=== PATIENT | male | born 1975 | race Caucasian/White ===

== ENCOUNTER 2017-12-09 23:45 | Emergency (ER) | payer OTHER ==
[~2017-12-09] VITALS: Ht 177.8 cm; Wt 86.2 kg
[~2017-12-09 23:45] MED LIST: AMOCLA875 PO; CYCL10 PO; ERYT.5TO LEFTEYE; IBUP400 PO; Naprosyn500 MG PO; PHENY100ER PO; Veetids 500500 MG PO
[2017-12-10] MEDS ORDERED: LEVE500 PO (02:44)
[2017-12-10] MEDS ORDERED: GABA100 (02:44)
[2017-12-10] MEDS ORDERED: IBUP800 PO (03:52)
[2017-12-10] MEDS ORDERED: MUPI1NAS (03:52)
== END 2017-12-10 04:10 | disposition home or self-care (01) ==
LOC: ER 23:45
DX: M79.675 Pain in left toe(s) (principal); Z23 Encounter for immunization; G40.909 Epilepsy, unspecified, not intractable, without status epilepticus; F17.200 Nicotine dependence, unspecified, uncomplicated; Z91.09 Other allergy status, other than to drugs and biological substances; Z79.899 Other long term (current) drug therapy
CPT/HCPCS: 73620; 90714

== ENCOUNTER 2018-01-07 18:36 | Emergency (ER) | payer OTHER ==
[~2018-01-07] VITALS: Ht 177.8 cm; Wt 81.7 kg
[~2018-01-07 18:36] MED LIST changes: +GABA100; +IBUP800 PO; +LEVE500 PO; +MUPI1NAS
[2018-01-07] MEDS ORDERED: HYDPAM50 PO (18:48)
[2018-01-07] MEDS ORDERED: TRAZ50 PO (18:48)
[2018-01-07] MEDS ORDERED: Naltrexone HCl50 MG PO (18:48)
[2018-01-07] MEDS ORDERED: SERT50 PO (18:49)
[2018-01-07 19:26] LABS: BASOPHILS ABSOLUTE AUTO 0.11 K/mm3 (0.00-0.23); BASOPHILS PERCENT AUTO 1 % (0-2); EOSINOPHILS ABSOLUTE AUTO 0.07 K/mm3 (0.00-0.68); EOSINOPHILS PERCENT AUTO 1 % (0-6); Hematocrit 41.4 % (37.0-53.0); Hemoglobin 14.9 g/dL (13.5-17.5); IMMATURE GRAN ABSOLUTE AUTO 0.03 K/mm3 (0.00-0.10); IMMATURE GRAN PERCENT AUTO 0 % (0-1); LYMPHOCYTES ABSOLUTE AUTO 4.17 K/mm3 (0.84-5.20); LYMPHOCYTES PERCENT AUTO 35 % (21-46); MONOCYTES PERCENT AUTO 9 % (4-13); Mean Corpuscular HGB 31.5 pg (26.0-34.0); Mean Corpuscular Volume 88 fL (80-100); Mean Platelet Volume 10.7 fL (9.1-12.4); NEUTROPHILS ABSOLUTE AUTO 6.35 K/mm3 (1.96-9.15); NEUTROPHILS PERCENT AUTO 54 % (41-73); Platelet Count 199 K/mm3 (150-400); RDW Coefficient Variation 13.3 % (11.7-14.2); RDW Standard Deviation 43.1 fL (35.1-46.3); Red Blood Cell Count 4.73 M/mm3 (4.30-5.90); White Blood Cell Count 11.83 K/mm3 (4.00-11.30)
[2018-01-07 19:44] LABS: Alanine Aminotransfer (ALT/SGP 189 U/L (12-78); Albumin, Blood 4.3 g/dL (3.4-5.0); Alk Phos 122 U/L (50-136); Anion Gap 10 mmol/L (6-16); Aspartate Aminotrans (AST/SGOT 103 U/L (12-37); Bilirubin, Total 0.7 mg/dL (0.1-1.0); Blood Urea Nitrogen 14 mg/dL (8-24); Bun/Creatinine Ratio 17.1 (12.0-20.0); CO2, Blood 26 mmol/L (21-32); Calcium, Blood 9.1 mg/dL (8.5-10.1); Chloride, Blood 101 mmol/L (98-108); Creatinine, Blood 0.82 mg/dL (0.60-1.20); Globulin, Blood 4.2 g/dL (2.2-4.0); Glomerular Filtration Rate >60 (60-); Glucose, Blood 145 mg/dL (70-99); Potassium, Blood 3.5 mmol/L (3.5-5.5); Sodium, Blood 137 mmol/L (136-145); Total Protein, Blood 8.5 g/dL (6.4-8.2)
== END 2018-01-08 00:30 | disposition home or self-care (01) ==
LOC: ER 18:36
PROVIDERS: Internal Medicine
DX: G40.909 Epilepsy, unspecified, not intractable, without status epilepticus (principal); F17.200 Nicotine dependence, unspecified, uncomplicated; Z91.09 Other allergy status, other than to drugs and biological substances; Z79.899 Other long term (current) drug therapy
CPT/HCPCS: 36415; 80053; 85025; 99284